=== PATIENT | female | born 1945 | race African-American/Black ===

== ENCOUNTER 2019-09-28 15:42 | Emergency (ER) | payer MEDICARE ==
[2019-09-28] MEDS ORDERED: ASPIRIN 81 MG TABLET, CHEWABLE PO ONE (17:08)
--- NOTE | 2019-09-28 17:09 | ER Document Report ---
ED Medical Screen (RME) - General Chief Complaint: Chest Pain Stated Complaint: CHEST PAIN Time Seen by Provider: 09/28/19 17:05 Primary Care Provider: ETTA TENORIO MD [Primary Care Provider] - Follow up as needed Notes: 74-year-old female presents with chest pain that is left-sided that radiates down her left arm. Patient states this started approximately 2 to 3 days ago. Associated dyspnea and lightheadedness. Regular rate and rhythm. Lungs clear to auscultation bilaterally. I have greeted and performed a rapid initial assessment of this patient. A comprehensive ED assessment and evaluation of the patient, analysis of test results and completion of the medical decision making process with be conducted by additional ED providers. TRAVEL OUTSIDE OF THE [place] IN LAST 30 DAYS: No - Related Data Allergies/Adverse Reactions: No Known Allergies Allergy (Verified 09/28/19 17:05) Past Medical History - Past Medical History Cardiac Medical History: Reports: Hx Hypertension Psychiatric Medical History: Reports: Hx Bipolar Disorder, Hx Schizophrenia Past Surgical History: Reports: Hx Hysterectomy - Immunizations Hx Diphtheria, Pertussis, Tetanus Vaccination: No Physical Exam - Vital signs Vitals: Temp Pulse Resp BP Pulse Ox 98.5 F 69 16 148/61 H 97 09/28/19 16:28 09/28/19 16:28 09/28/19 16:28 09/28/19 16:28 09/28/19 16:28 Course - Vital Signs Vital signs: Temp Pulse Resp BP Pulse Ox 98.5 F 69 16 148/61 H 97 09/28/19 16:28 09/28/19 16:28 09/28/19 16:28 09/28/19 16:28 09/28/19 16:28 Doctor's Discharge - Discharge Referrals: ETTA TENORIO MD [Primary Care Provider] - Follow up as needed
--- NOTE | 2019-09-28 17:35 | RADIOLOGY REPORT (SQ) ---
EXAM DESCRIPTION: CHEST 2 VIEWS COMPLETED DATE/TIME: 09/28/2019 5:26 pm REASON FOR STUDY: chest pain COMPARISON: 07/20/2014 EXAM PARAMETERS: NUMBER OF VIEWS: two views TECHNIQUE: Digital Frontal and Lateral radiographic views of the chest acquired. RADIATION DOSE: NA LIMITATIONS: none FINDINGS: LUNGS AND PLEURA: No opacities, masses or pneumothorax. No pleural effusion. MEDIASTINUM AND HILAR STRUCTURES: No masses or contour abnormalities. HEART AND VASCULAR STRUCTURES: Heart normal size. No evidence for failure. BONES: No acute findings. HARDWARE: None in the chest. OTHER: No other significant finding. IMPRESSION: NO ACUTE RADIOGRAPHIC FINDING IN THE CHEST. TECHNICAL DOCUMENTATION: JOB ID: [id number] 2010 [employer]- All Rights Reserved Reading location - IP/workstation name: [email or web address]
[2019-09-28 18:56] LABS: ABSOLUTE MONOCYTES (AUTO) 0.4 10^3/uL (0.1-1.4); MONOCYTES % (AUTO) 7.5 % (3-13); RED CELL DISTRIBUTION WIDTH 15.6 % (11.5-14.0); TOTAL CELLS COUNTED % (AUTO) 100 %
[2019-09-28 19:04] LABS: ABSOLUTE EOSINOPHILS # (AUTO) 0.1 10^3/uL (0.0-0.6); ABSOLUTE LYMPHOCYTES (AUTO) 1.3 10^3/uL (0.5-4.7); BASOPHILS % (AUTO) 0.2 % (0-2); EOSINOPHILS % (AUTO) 1.1 % (0-6); HEMATOCRIT 35.7 % (36.0-47.0); HEMOGLOBIN 11.9 g/dL (12.0-15.5); LYMPHOCYTES % (AUTO) 27.5 % (13-45); MEAN CORPUSCULAR HEMOGLOBIN 29.5 pg (27.0-33.4); MEAN CORPUSCULAR HGB CONC 33.3 g/dL (32.0-36.0); MEAN CORPUSCULAR VOLUME 89 fl (80-97); PLATELET COUNT 217 10^3/uL (150-450); RED BLOOD COUNT 4.03 10^6/uL (3.72-5.28); SEGMENTED NEUTROPHILS % (AUTO) 63.7 % (42-78); WHITE BLOOD COUNT 4.7 10^3/uL (4.0-10.5)
[2019-09-28 19:20] LABS: ALBUMIN 4.2 g/dL (3.5-5.0); ALKALINE PHOSPHATASE 86 U/L (38-126); ANION GAP 9 (5-19); ASPARTATE AMINO TRANSFERASE 23 U/L (14-36); BILIRUBIN,DIRECT 0.3 mg/dL (0.0-0.4); BILIRUBIN,TOTAL 0.4 mg/dL (0.2-1.3); BLOOD UREA NITROGEN 20 mg/dL (7-20); CALCIUM 9.5 mg/dL (8.4-10.2); CARBON DIOXIDE 31 mmol/L (22-30); CHLORIDE 100 mmol/L (98-107); GLUCOSE 87 mg/dL (75-110); POTASSIUM 3.6 mmol/L (3.6-5.0); TOTAL PROTEIN 7.1 g/dL (6.3-8.2)
--- NOTE | 2019-09-28 20:51 | ER Document Report ---
ED Cardiac - General Chief Complaint: Chest Pain Stated Complaint: CHEST PAIN Time Seen by Provider: 09/28/19 17:05 Primary Care Provider: ETTA TENORIO MD [Primary Care Provider] - Follow up tomorrow Notes: Patient is a 74-year-old female that comes to the emergency department for chief complaint of chest pain. She states the pain is in intermittently sharp pain over the left side of her chest near the shoulder that occasionally goes into her arm. She denies that this is worse with movement. She states she has had an occasional mild cough, denies injury, denies nausea or vomiting, denies fever, denies shortness of breath. She denies history of HI, cannot recall if she has had a stress test or cardiac catheterization. She has a history of hypertension, hyperlipidemia, type 2 diabetes, bipolar disorder, and hysterectomy reportedly. Patient lives at home. Her nephew is at bedside. Her primary care provider is Dr. Tenorio. She states she stopped smoking 15 years ago, she denies family history of HI. TRAVEL OUTSIDE OF THE [place] IN LAST 30 DAYS: No - Related Data Allergies/Adverse Reactions: No Known Allergies Allergy (Verified 09/28/19 17:05) Home Medications: dm. htn Past Medical History - General Information source: Patient - Social History Smoking Status: Former Smoker Chew tobacco use (# tins/day): No Frequency of alcohol use: None Drug Abuse: None Lives with: Family Family History: Reviewed & Not Pertinent Patient has suicidal ideation: No Patient has homicidal ideation: No - Past Medical History Cardiac Medical History: Reports: Hx Hypercholesterolemia, Hx Hypertension Endocrine Medical History: Reports: Hx Diabetes Mellitus Type 2 Psychiatric Medical History: Reports: Hx Bipolar Disorder, Hx Schizophrenia Past Surgical History: Reports: Hx Hysterectomy - Immunizations Hx Diphtheria, Pertussis, Tetanus Vaccination: No Review of Systems - Review of Systems Constitutional: No symptoms reported EENT: No symptoms reported Cardiovascular: See HPI Respiratory: No symptoms reported Gastrointestinal: No symptoms reported Genitourinary: No symptoms reported Female Genitourinary: No symptoms reported Musculoskeletal: See HPI Skin: No symptoms reported Hematologic/Lymphatic: No symptoms reported Neurological/Psychological: No symptoms reported Physical Exam - Vital signs Vitals: Temp Pulse Resp BP Pulse Ox 98.5 F 69 16 148/61 H 97 09/28/19 16:28 09/28/19 16:28 09/28/19 16:28 09/28/19 16:28 09/28/19 16:28 - Notes Notes: GENERAL: Alert, interacts well. No acute distress. HEAD: Normocephalic, atraumatic. EYES: Pupils equal, round, and reactive to light. Extraocular movements intact. ENT: Oral mucosa moist, tongue midline. Oropharynx unremarkable. Airway patent. NECK: Full range of motion. Supple. Trachea midline. LUNGS: Clear to auscultation bilaterally, no wheezes, rales, or rhonchi. No respiratory distress. HEART: Regular rate and rhythm. No murmur ABDOMEN: Soft, non-tender. Non-distended. EXTREMITIES: Moves all 4 extremities spontaneously. No edema, normal radial and dorsalis pedis pulses bilaterally. No cyanosis. BACK: no cervical, thoracic, lumbar midline tenderness. No saddle anesthesia, normal distal neurovascular exam. Moves all extremities in full range of motion. NEUROLOGICAL: Alert and oriented x3. Normal speech. Cranial nerves II through XII grossly intact. PSYCH: Slightly flat affect but does make good eye contact and does respond to questions appropriately SKIN: Warm, dry, normal turgor. No rashes or lesions noted. Course - Re-evaluation Re-evalutation: EKG nonspecific. Chest x-ray unremarkable. CBC, chemistry unremarkable, troponin is negative. Patient does have atypical pain that is been going on for 3 days with a negative troponin at this point. However patient is 74 years old, reports a history of type 2 diabetes, hypertension, hyperlipidemia, and obesity. Her heart score is 4. Repeat troponin is negative. On reevaluation patient has no complaints. I will call and speak with her primary provider/hospitalist. I spoke with Dr. Tenorio. He states that his recommendation is that patient can be discharged home but he will follow-up with her in the office tomorrow for additional testing and evaluation. Patient is to be discharged with return precautions. I discussed this with patient and relatives at bedside. They state appreciation and agreement with plan. Asymptomatic, well-appearing, and stable at time of discharge. - Vital Signs Vital signs: Temp Pulse Resp BP Pulse Ox 98.5 F 69 16 119/48 L 100 09/28/19 16:28 09/28/19 16:28 09/28/19 23:25 09/28/19 23:25 09/28/19 23:25 - Laboratory Result Diagrams: 09/28/19 18:14 09/28/19 18:14 Laboratory results interpreted by me: 09/28/19 09/28/19 18:14 18:14 Hgb 11.9 L Hct 35.7 L RDW 15.6 H Carbon Dioxide 31 H - EKG Interpretation by Me Additional EKG results interpreted by me: EKG shows sinus rhythm at a rate of 73, borderline left axis deviation, inverted T waves in lead III but no T wave inversions or ST segment changes in consecutive leads. Discharge - Discharge Clinical Impression: Chest pain Qualifiers: Chest pain type: unspecified Qualified Code(s): R07.9 - Chest pain, unspecified Condition: Stable Disposition: HOME, SELF-CARE Additional Instructions: Your work-up is reassuring at this time, I spoke with Dr. Tenorio, please call him tomorrow at his office for your close follow-up and additional testing. Come back if you worsen including returned, severe, or worsening pain, passing out, vomiting, fever, difficulty breathing, or any other concerning symptoms. Referrals: ETTA TENORIO MD [Primary Care Provider] - Follow up tomorrow
--- NOTE | 2019-09-28 22:31 | EKG REPORT ---
SEVERITY:- ABNORMAL ECG - SINUS RHYTHM PROBABLE LEFT ATRIAL ABNORMALITY PROBABLE LEFT VENTRICULAR HYPERTROPHY : Confirmed by: Sergio Cross 28-Sep-2019 22:30:33
[2019-09-28 23:35] VITALS: BP 119/48
== END 2019-09-28 23:35 | disposition home or self-care (01) ==
LOC: ER 15:42
DX: R07.89 Other chest pain (principal); R05 Cough; I10 Essential (primary) hypertension; E11.9 Type 2 diabetes mellitus without complications; Z79.899 Other long term (current) drug therapy; Z87.891 Personal history of nicotine dependence
CPT/HCPCS: 93005; 99285; 36415; 85025; 80053; 84484; 71046; 93010; A9270